=== PATIENT | male | born 1985 | race Caucasian/White ===

== ENCOUNTER 2017-12-26 08:55 | Emergency (ER) | payer OTHER ==
[~2017-12-26] VITALS: Ht 185.4 cm; Wt 124.7 kg
--- NOTE | 2017-12-26 08:58 | NUR ---
PATIENT AMBULATED TO BED 7 AT THIS TIME.
[2017-12-26 09:00] VITALS: BP 176/87
[2017-12-26 09:05] VITALS: BP 176/86
--- NOTE | 2017-12-26 09:05 | NUR ---
bib self c/o right calf pain. pt states while running yesterday, heard a POP with immediate pain to right calf. pt has no swelling, no redness noted, tender to touch. + rom , + cms , < 3 cap refill. bed down, bedrail up x 1, er md aware and notified of pt status. hx--htn rx---none
--- NOTE | 2017-12-26 09:18 | NUR ---
Patient being evaluated by physician at bedside.
--- NOTE | 2017-12-26 09:27 | NUR ---
emt yael applying darnell wrap and pt given crutches
--- NOTE | 2017-12-26 09:37 | NUR ---
Patient discharged with v/s stable. Written and verbal after care instructions given and explained. Patient alert, oriented and verbalized understanding of instructions. Ambulatory with steady gait. All questions addressed prior to discharge. ID band removed. Patient advised to follow up with PMD. Rx of norco and motrin given. Patient educated on indication of medication including possible reaction and side effects. Opportunity to ask questions provided and answered.
== END 2017-12-26 09:37 | disposition home or self-care (01) ==
LOC: MED 08:55
DX: S86.811A Strain of other muscle(s) and tendon(s) at lower leg level, right leg, initial encounter (principal); I10 Essential (primary) hypertension; X58.XXXA Exposure to other specified factors, initial encounter; Y93.02 Activity, running; Y92.89 Other specified places as the place of occurrence of the external cause; Y99.8 Other external cause status
CPT/HCPCS: 99283